=== PATIENT | female | born 1975 | race Caucasian/White ===

== ENCOUNTER 2021-11-22 22:29 | Emergency (ER) | payer SELFPAY ==
--- NOTE | 2021-11-22 22:55 | NUR ---
Patient was called to mbe triaged but was not present in the waiting room or outside of ER.
--- NOTE | 2021-11-22 23:05 | NUR ---
PATIENT WAS CALLED TO BE TRAIGED BUT WAS NOT PRESENT IN THE WAITING ROOM OR OUTSIDE OF ER.
--- NOTE | 2021-11-22 23:10 | NUR ---
PATIENT WAS CALLED BUT WAS NOT PRESENT. PATIENT WAS NOT TRAIGED OR SEEN BY [facility].
== END 2021-11-22 23:11 | disposition left against medical advice (07) ==
LOC: ER 22:32
DX: Z53.21 Procedure and treatment not carried out due to patient leaving prior to being seen by health care provider (principal)